=== PATIENT | male | born 1950 | race Caucasian/White ===

== ENCOUNTER 2022-03-24 10:02 | Outpatient (CLI) | payer MEDICARE, SELFPAY ==
--- NOTE | ~2022-03-24 | NM_ITS ---
EXAMINATION: NM bone scan whole body DATE: 03/24/2022 13:53 INDICATION: Prostate cancer TECHNIQUE: 24.7 mCi Tc-99m HDP was administered intravenously. Delayed whole-body scintigrams were o btained. COMPARISON: There are no relevant imaging studies at our institution. FINDINGS: Likely degenerative joint centered uptake at the right foot and bilateral knees, elbows and wrists. M ore subtle likely degenerative uptake at the bilateral acromioclavicular and sternoclavicular joints. Additional small foci of mild increased uptake at several of the costovertebral articulations. Small focus of increased uptake in the region of the left nasal cavity/paranasal sinuses most likely relat ed to sinus disease. No other suspicious foci of abnormal bone uptake to suggest osseous metastatic d isease.. IMPRESSION: 1. No evident osseous metastatic disease. Reviewed, dictated and finalized at location A.
== END 2022-03-24 10:03 | disposition home or self-care (01) ==
LOC: ANHIMG 10:07
PROVIDERS: Visit Provider Urology
DX: C61 Malignant neoplasm of prostate (principal)
CPT/HCPCS: 78306; A9561